=== PATIENT | female | born 1960 | race Caucasian/White ===

== ENCOUNTER 2020-07-28 13:24 | Emergency (ER) | payer OTHER ==
[~2020-07-28] VITALS: Ht 185.4 cm; Wt 59.0 kg
[2020-07-28] MEDS ORDERED: ADENOSINE 6 MG/2 ML SYR IV ONE ×2 (14:11→14:15)
[2020-07-28] MEDS ORDERED: LIOT5TAB11 PO (14:24)
[2020-07-28] MEDS ORDERED: TESTOS (14:24)
[2020-07-28] MEDS ORDERED: ESTRADIOL (14:24)
[2020-07-28] MEDS ORDERED: PROG100C15 PO (14:24)
[2020-07-28] MEDS ORDERED: LEVO50TA8 PO (14:24)
[2020-07-28 14:25] LABS: BASOPHILS % (AUTO) 0.5 % (0.0-2.0); EOSINOPHILS % (AUTO) 0.4 % (0.0-7.0); HEMATOCRIT 45.6 % (31.2-41.9); HEMOGLOBIN 15.1 g/dL (10.9-14.3); LYMPHOCYTES # (AUTO) 2.3 K/uL (20.0-40.0); LYMPHOCYTES % (AUTO) 28.4 % (20.5-51.5); MEAN CORPUSCULAR HGB CONC 33 g/dL (32.3-35.6); MEAN CORPUSCULAR VOLUME 96.4 fL (75.5-95.3); MONOCYTES # (AUTO) 0.6 K/uL (2.0-10.0); MONOCYTES % (AUTO) 7.8 % (0.0-11.0); NEUTROPHILS # (AUTO) 5.1 K/uL (1.8-8.9); NEUTROPHILS % (AUTO) 62.9 % (38.5-71.5); PLATELET COUNT (AUTO) 278 K/uL (179-408); RED BLOOD CELL COUNT(AUTO) 4.73 MIL/uL (3.63-4.92); WHITE BLOOD COUNT (AUTO) 8.2 K/uL (3.8-11.8)
[2020-07-28] MEDS ORDERED: TESTOSTERONE (14:26)
[2020-07-28 14:30] LABS: CREATININE 0.9 mg/dL (0.6-1.3); POTASSIUM 4.4 mmol/L (3.5-5.1)
[2020-07-28 14:37] LABS: BILIRUBIN,DIRECT 0.1 mg/dL (0.0-0.2); BILIRUBIN,TOTAL 0.4 mg/dL (0.2-1.0); TOTAL PROTEIN, SERUM 7.3 g/dL (6.4-8.2)
[2020-07-28] MEDS ORDERED: IV NORMAL SALINE 1000 ML BAG IV ONE (15:00)
[2020-07-28] MEDS ORDERED: PRAS1TAB4 PO (15:19)
[2020-07-28] MEDS ORDERED: [UNRECOGNIZED DRUG - OTHER] PO (15:19)
[2020-07-28] MEDS ORDERED: [UNRECOGNIZED DRUG - OTHER] PO (15:19)
[2020-07-28] MEDS ORDERED: [UNRECOGNIZED DRUG - OTHER] PO (15:19)
[2020-07-28] MEDS ORDERED: TURMERIC PO (15:19)
[2020-07-28] MEDS ORDERED: VITAMIN D PO (15:19)
[2020-07-28] MEDS ORDERED: [UNRECOGNIZED DRUG - OTHER] PO (15:19)
[2020-07-28] MEDS ORDERED: VEGAN OMEGA PO (15:19)
--- NOTE | 2020-07-28 15:33 | NUR ---
Patient discharged to home in stable condition. Written and verbal after care instructions given. Patient verbalizes understanding of instructions. Stressed follow up or return to ER for worsening s/s.
--- NOTE | 2020-07-28 15:33 | NUR ---
IV removed. Catheter intact and site benign. Pressure and 4x4 gauze applied to site. No bleeding noted.
[2020-07-28 15:38] VITALS: BP 126/84
== END 2020-07-28 15:38 | disposition home or self-care (01) ==
LOC: ER 13:31
DX: I47.1 Supraventricular tachycardia (principal); E03.9 Hypothyroidism, unspecified; Z79.890 Hormone replacement therapy
CPT/HCPCS: 36415; 70030-TC; 71045; 84443; 85025; 93005; A4663; J0153